=== PATIENT | female | born 1970 | race Caucasian/White ===

== ENCOUNTER 2017-07-17 05:57 | Day surgery (SDC) | payer MEDICARE, BC ==
[2017-07-17 06:48] LABS: ADD MAN DIFF? NO
[2017-07-17 06:51] LABS: BASOPHILS % 0.2 % (0.0-2.0); EOSINOPHILS # 0.1 10^3/ul (0.0-0.5); EOSINOPHILS % 1.4 % (0.0-7.0); HEMATOCRIT 40.9 % (37.0-47.0); HEMOGLOBIN 13.3 g/dl (12.0-16.0); LYMPHOCYTES % 23.1 % (15.0-51.0); MEAN CORPUSCULAR HEMOGLOBIN 31.4 pg (29.0-33.0); MEAN CORPUSCULAR HGB CONC 32.5 g/dl (32.0-37.0); MEAN CORPUSCULAR VOLUME 96.7 fl (82.0-101.0); MEAN PLATELET VOLUME 10.3 fl (7.4-10.4); MONOCYTE # 0.4 10^3/ul (0.3-0.9); MONOCYTES % 9.5 % (0.0-11.0); NEUTROPHIL # 2.9 10^3/ul (1.6-7.5); NEUTROPHILS % 65.6 % (39.0-77.0); PLATELET COUNT 153 10^3/UL (140-415); RED BLOOD COUNT 4.23 10^6/ul (4.20-5.40); RED CELL DISTRIBUTION WIDTH 13.5 % (11.5-14.5)
[2017-07-17 06:51] LABS: WHITE BLOOD COUNT 4.4 10^3/ul (4.8-10.8)
[2017-07-17 07:07] LABS: INR 0.82; PROTIME 11.3 Sec (11.9-14.9); PT RATIO 0.9
[2017-07-17 07:09] LABS: ANION GAP 15 (8-16); BLOOD UREA NITROGEN 39 mg/dl (7-20); CALCIUM 9.5 mg/dl (8.4-10.2); CARBON DIOXIDE 25 mmol/L (21-31); CHLORIDE 98 mmol/L (97-110); CREATININE 5.58 mg/dl (0.44-1.00); GLUCOSE 232 mg/dl (70-220); POTASSIUM 5.4 mmol/L (3.5-5.1)
[2017-07-17 07:15] LABS: SODIUM 133 mmol/L (135-144)
[2017-07-18] MEDS ORDERED: morphine 10 MG INJ (16:28)
[2017-07-18] MEDS ORDERED: MIDAZOLAM 1 MG/ML 2 ML INJ (16:28)
[2017-07-18] MEDS ORDERED: hydrALAzine 20 MG INJ (16:28)
[2017-07-18] MEDS ORDERED: CEFAZOLIN 2 GM/50 ML (PMX) 50 ML IVPB (16:28)
[2017-07-18] MEDS ORDERED: HEPARIN 1000 UNITS/ML 10 ML INJ (16:28)
[2017-07-18] MEDS ORDERED: FENTAnyl 50 MCG/ML VIAL (16:28)
[2017-07-18] MEDS ORDERED: IODIXANOL LOCM 100 ML BTL (16:28)
[2017-07-18] MEDS ORDERED: ONDANSETRON 4 MG INJ (16:28)
[2017-07-18] MEDS ORDERED: LIDOCAINE 1% (MDV) 20 ML INJ (16:28)
[2017-07-18] MEDS ORDERED: IODIXANOL LOCM 50 ML BTL (16:28)
== END 2017-07-17 10:24 | disposition home or self-care (01) ==
LOC: SDS 05:57
DX: T82.898A Other specified complication of vascular prosthetic devices, implants and grafts, initial encounter (principal); Y84.1 Kidney dialysis as the cause of abnormal reaction of the patient, or of later complication, without mention of misadventure at the time of the procedure; I12.0 Hypertensive chronic kidney disease with stage 5 chronic kidney disease or end stage renal disease; N18.6 End stage renal disease; E11.319 Type 2 diabetes mellitus with unspecified diabetic retinopathy without macular edema; E11.21 Type 2 diabetes mellitus with diabetic nephropathy
CPT/HCPCS: 36902; 36909; 71045; 75825; 80048; 82962; 84703; 85025; 85610; 85730; 93005

== ENCOUNTER 2017-10-06 08:32 | Emergency (ER) | payer MEDICARE, BC ==
[2017-10-06] MEDS ORDERED: HYDROCODONE/APAP (10/325) TAB PO (09:30)
[2017-10-06] MEDS: ONDANSETRON (ODT) 4 MG TAB ODT (09:30)
[2017-10-06] MEDS: KETOROLAC 30 MG INJ IM (09:31)
[2017-10-06 09:50] LABS: ADD MAN DIFF? NO
[2017-10-06 09:56] LABS: WHITE BLOOD COUNT 4.6 10^3/ul (4.8-10.8)
[2017-10-06 09:56] LABS: BASOPHILS % 0.2 % (0.0-2.0); EOSINOPHILS # 0.1 10^3/ul (0.0-0.5); EOSINOPHILS % 1.5 % (0.0-7.0); HEMATOCRIT 28.3 % (37.0-47.0); HEMOGLOBIN 9.1 g/dl (12.0-16.0); LYMPHOCYTES # 0.8 10^3/ul (0.8-2.9); LYMPHOCYTES % 16.7 % (15.0-51.0); MEAN CORPUSCULAR HEMOGLOBIN 32.2 pg (29.0-33.0); MEAN CORPUSCULAR HGB CONC 32.2 g/dl (32.0-37.0); MEAN PLATELET VOLUME 9.1 fl (7.4-10.4); MONOCYTE # 0.5 10^3/ul (0.3-0.9); MONOCYTES % 10.3 % (0.0-11.0); NEUTROPHIL # 3.2 10^3/ul (1.6-7.5); NEUTROPHILS % 70.9 % (39.0-77.0); PLATELET COUNT 135 10^3/UL (140-415); RED BLOOD COUNT 2.83 10^6/ul (4.20-5.40); RED CELL DISTRIBUTION WIDTH 15.5 % (11.5-14.5)
[2017-10-06 09:57] LABS: ADD UMIC YES; UR ASCORBIC ACID NEGATIVE (NEGATIVE); UR BACTERIA FEW /HPF (NONE SEEN); UR BILIRUBIN (Dip) NEGATIVE (NEGATIVE); UR BLOOD (Dip) NEGATIVE (NEGATIVE); UR CLARITY SLIGHTLY CLOUDY (CLEAR); UR COLOR YELLOW (YELLOW); UR GLUCOSE (Dip) 3+ mg/dL (NEGATIVE); UR KETONES (Dip) NEGATIVE (NEGATIVE); UR LEUKOCYTE ESTERASE (Dip) 1+ Leu/ul (NEGATIVE); UR NITRITE (Dip) NEGATIVE (NEGATIVE); UR RBC 4 /HPF (0-5); UR SPECIFIC GRAVITY (Dip) 1.012 (1.003-1.030); UR SQUAMOUS EPITHELIAL CELL FEW /HPF (FEW); UR TOTAL PROTEIN (Dip) 3+ mg/dl (NEGATIVE); UR UROBILINOGEN (Dip) NEGATIVE (NEGATIVE); UR WBC 4 /HPF (0-5)
[2017-10-06 10:17] LABS: ANION GAP 21 (8-16)
[2017-10-06 10:18] LABS: BLOOD UREA NITROGEN 65 mg/dl (7-20); CALCIUM 8.9 mg/dl (8.4-10.2); CARBON DIOXIDE 21 mmol/L (21-31); CHLORIDE 99 mmol/L (97-110); GLUCOSE 309 mg/dl (70-220); POTASSIUM 4.9 mmol/L (3.5-5.1); SODIUM 136 mmol/L (135-144)
[2017-10-06] MEDS: CEFTRIAXONE 1 GM INJ IM (10:26)
[2017-10-06 10:32] LABS: TROPONIN-I < 0.012 ng/ml (0.00-0.12)
== END 2017-10-06 10:57 | disposition home or self-care (01) ==
LOC: E/R 10:57
DX: N39.0 Urinary tract infection, site not specified (principal); F11.29 Opioid dependence with unspecified opioid-induced disorder; G89.4 Chronic pain syndrome; I12.0 Hypertensive chronic kidney disease with stage 5 chronic kidney disease or end stage renal disease; N18.6 End stage renal disease; E11.22 Type 2 diabetes mellitus with diabetic chronic kidney disease; Z91.14 Patient's other noncompliance with medication regimen; Z99.2 Dependence on renal dialysis; Z79.4 Long term (current) use of insulin; Z79.84 Long term (current) use of oral hypoglycemic drugs
CPT/HCPCS: 36415; 71045; 80048; 81001; 84484; 85025; 93005; 96372; 99285-25

== ENCOUNTER 2017-11-07 08:52 | Inpatient (IN) | payer MEDICARE, BC ==
[2017-11-07] MEDS: ONDANSETRON 4 MG INJ IV ×4 (09:04→19:52)
[2017-11-07] MEDS: morphine 4 MG/ML VIAL IV ×2 (09:04→10:19)
[2017-11-07 09:44] LABS: ADD MAN DIFF? NO
[2017-11-07 09:48] LABS: WHITE BLOOD COUNT 5.9 10^3/ul (4.8-10.8)
[2017-11-07 09:48] LABS: BASOPHILS % 0.3 % (0.0-2.0); EOSINOPHILS # 0.1 10^3/ul (0.0-0.5); HEMATOCRIT 40.4 % (37.0-47.0); HEMOGLOBIN 12.5 g/dl (12.0-16.0); LYMPHOCYTES # 0.9 10^3/ul (0.8-2.9); LYMPHOCYTES % 14.5 % (15.0-51.0); MEAN CORPUSCULAR HEMOGLOBIN 30.8 pg (29.0-33.0); MEAN CORPUSCULAR HGB CONC 30.9 g/dl (32.0-37.0); MEAN CORPUSCULAR VOLUME 99.5 fl (82.0-101.0); MEAN PLATELET VOLUME 10.5 fl (7.4-10.4); MONOCYTE # 0.4 10^3/ul (0.3-0.9); MONOCYTES % 7.2 % (0.0-11.0); NEUTROPHIL # 4.6 10^3/ul (1.6-7.5); NEUTROPHILS % 76.8 % (39.0-77.0); PLATELET COUNT 143 10^3/UL (140-415); RED BLOOD COUNT 4.06 10^6/ul (4.20-5.40); RED CELL DISTRIBUTION WIDTH 12.2 % (11.5-14.5)
[2017-11-07 10:05] LABS: ANION GAP 18 (8-16); BLOOD UREA NITROGEN 52 mg/dl (7-20); CALCIUM 10.1 mg/dl (8.4-10.2); CARBON DIOXIDE 29 mmol/L (21-31); CHLORIDE 97 mmol/L (97-110); CREATININE 7.28 mg/dl (0.44-1.00); GLUCOSE 243 mg/dl (70-220); SODIUM 138 mmol/L (135-144)
[2017-11-07 10:07] LABS: POTASSIUM 6.3 mmol/L (3.5-5.1)
[2017-11-07 10:16] LABS: PARTIAL THROMBOPLASTIN TIME 27.4 Sec (25.0-35.0)
[2017-11-07 10:18] LABS: TROPONIN-I < 0.012 ng/ml (0.000-0.120)
[2017-11-07] MEDS: NA BICARBONATE 8.4% 50 ML SYG IV (10:19)
[2017-11-07] MEDS: CA CHLORIDE 10% 10 ML SYRINGE IV (10:19)
[2017-11-07] MEDS: NA POLYST SULFON 15 GM/60 ML BTL PO (10:19)
[2017-11-07 10:31] LABS: INR 0.96; PROTIME 12.9 Sec (11.9-14.9)
[2017-11-07] MEDS ORDERED: GLUCOSE GEL 15 GRAM TUBE BUCCAL (12:30)
[2017-11-07] MEDS ORDERED: GLUCAGON 1 MG INJ IM (12:30)
[2017-11-07] MEDS ORDERED: ALBUMIN HUMAN 25% 50 ML IV (12:30)
[2017-11-07] MEDS ORDERED: SODIUM CHLORIDE 0.9% 1L BAG IV (12:30)
[2017-11-07] MEDS ORDERED: DEXTROSE 50% 50 ML SYRINGE IV ×2 (12:30)
[2017-11-07] MEDS ORDERED: GLUCOSE GEL 15 GRAM TUBE PO ×2 (12:30)
[2017-11-07 12:34] LABS: LACTIC ACID 0.9 mmol/L (0.5-2.0)
[2017-11-07 12:44] LABS: ANION GAP 17 (8-16); BLOOD UREA NITROGEN 54 mg/dl (7-20); CALCIUM 10.2 mg/dl (8.4-10.2); CARBON DIOXIDE 31 mmol/L (21-31); CHLORIDE 96 mmol/L (97-110); CREATININE 7.35 mg/dl (0.44-1.00); GLUCOSE 287 mg/dl (70-220); SODIUM 137 mmol/L (135-144)
[2017-11-07 12:47] LABS: POTASSIUM 6.8 mmol/L (3.5-5.1)
[2017-11-07 14:13] LABS: LACTIC ACID 0.9 mmol/L (0.5-2.0)
[2017-11-07 14:47] LABS: HEPATITIS B SURFACE ANTIGEN NEGATIVE (NEGATIVE)
[2017-11-07] MEDS ORDERED: DOCUSATE SODIUM 100 MG CAP PO (15:00)
[2017-11-07] MEDS ORDERED: NACL 0.9% 3 ML SYG IV (15:00)
[2017-11-07] MEDS ORDERED: VANCOMYCIN IV PER PHARMACY XX (16:30)
[2017-11-07] MEDS: PANTOPRAZOLE (EC) 40 MG TAB PO (16:40)
[2017-11-07] MEDS: morphine 2 MG INJ IV ×3 (16:41→23:35)
[2017-11-07] MEDS: HEPARIN 1000 UNITS/ML 10 ML INJ CATHETER (17:04)
[2017-11-07] MEDS: INSULIN ASPART [NOVOLOG] 3 ML PEN SC (17:49)
[2017-11-07] MEDS: VANCOMYCIN 1.25 GM in SOD CHLORIDE 0.9% 250 ML IVPB (18:05)
[2017-11-07] MEDS: FUROSEMIDE 40 MG TAB PO (18:15)
[2017-11-07] MEDS: METOPROLOL 25 MG TAB PO (20:12)
[2017-11-07] MEDS: ATORVASTATIN 40 MG TAB PO (20:12)
[2017-11-07] MEDS: hydrALAzine 20 MG INJ IV (20:12)
[2017-11-07 20:34] LABS: ANION GAP 14 (8-16); BLOOD UREA NITROGEN 20 mg/dl (7-20); CALCIUM 9.2 mg/dl (8.4-10.2); CARBON DIOXIDE 31 mmol/L (21-31); CHLORIDE 98 mmol/L (97-110); CREATININE 3.77 mg/dl (0.44-1.00); GLUCOSE 146 mg/dl (70-220); POTASSIUM 4.3 mmol/L (3.5-5.1); SODIUM 139 mmol/L (135-144)
[2017-11-08] MEDS: ACCU-CHEK XX (02:00)
[2017-11-08] MEDS: FUROSEMIDE 40 MG TAB PO ×2 (05:07→17:18)
[2017-11-08] MEDS: PANTOPRAZOLE (EC) 40 MG TAB PO (05:07)
[2017-11-08] MEDS: morphine 2 MG INJ IV ×4 (05:57→20:20)
[2017-11-08 06:11] LABS: ADD MAN DIFF? NO
[2017-11-08 06:21] LABS: WHITE BLOOD COUNT 3.9 10^3/ul (4.8-10.8)
[2017-11-08 06:21] LABS: BASOPHILS % 0.5 % (0.0-2.0); EOSINOPHILS # 0.1 10^3/ul (0.0-0.5); EOSINOPHILS % 1.5 % (0.0-7.0); HEMATOCRIT 33.9 % (37.0-47.0); HEMOGLOBIN 10.8 g/dl (12.0-16.0); LYMPHOCYTES # 1.1 10^3/ul (0.8-2.9); LYMPHOCYTES % 28.9 % (15.0-51.0); MEAN CORPUSCULAR HEMOGLOBIN 31.8 pg (29.0-33.0); MEAN CORPUSCULAR HGB CONC 31.9 g/dl (32.0-37.0); MEAN CORPUSCULAR VOLUME 99.7 fl (82.0-101.0); MEAN PLATELET VOLUME 10.2 fl (7.4-10.4); MONOCYTE # 0.5 10^3/ul (0.3-0.9); MONOCYTES % 12.5 % (0.0-11.0); NEUTROPHIL # 2.2 10^3/ul (1.6-7.5); NEUTROPHILS % 56.3 % (39.0-77.0); PLATELET COUNT 116 10^3/UL (140-415); RED CELL DISTRIBUTION WIDTH 12.4 % (11.5-14.5)
[2017-11-08 08:00] LABS: HEMOGLOBIN A1C 6.1 % (0-5.9)
[2017-11-08] MEDS: METOPROLOL 25 MG TAB PO ×2 (08:27→20:18)
[2017-11-08] MEDS: NIFEdipine (XL) 60 MG TAB PO (08:27)
[2017-11-08] MEDS: LOSARTAN 50 MG TAB PO (08:27)
[2017-11-08] MEDS: ASPIRIN 81 MG TAB PO (08:28)
[2017-11-08] MEDS: INSULIN ASPART [NOVOLOG] 3 ML PEN SC ×5 (10:21→20:34)
[2017-11-08] MEDS ORDERED: METOCLOPRAMIDE 5 MG TAB PO (12:30)
[2017-11-08] MEDS ORDERED: ALPRAZOLAM 0.25 MG TAB PO (12:30)
[2017-11-08] MEDS: DORZOLAMIDE/TIMOLOL/PF 0.2 ML DROPERETTE BOTH EYES ×2 (13:48→20:18)
[2017-11-08] MEDS: ATORVASTATIN 40 MG TAB PO (20:18)
[2017-11-08] MEDS: INSULIN GLARGINE [LANtus] 3 ML PEN SC (20:31)
[2017-11-09] MEDS: ACCU-CHEK XX (02:00)
[2017-11-09] MEDS: morphine 2 MG INJ IV ×5 (04:34→22:22)
[2017-11-09] MEDS: FUROSEMIDE 40 MG TAB PO ×2 (05:10→17:26)
[2017-11-09] MEDS: PANTOPRAZOLE (EC) 40 MG TAB PO (05:10)
[2017-11-09 06:17] LABS: VANCOMYCIN,RANDOM 15.5 ug/ml
[2017-11-09] MEDS: INSULIN ASPART [NOVOLOG] 3 ML PEN SC ×6 (08:00→22:08)
[2017-11-09] MEDS: METOPROLOL 25 MG TAB PO ×2 (08:22→21:59)
[2017-11-09] MEDS: NIFEdipine (XL) 60 MG TAB PO (08:22)
[2017-11-09] MEDS: LOSARTAN 50 MG TAB PO (08:22)
[2017-11-09] MEDS: ASPIRIN 81 MG TAB PO (08:22)
[2017-11-09] MEDS: DORZOLAMIDE/TIMOLOL/PF 0.2 ML DROPERETTE BOTH EYES ×2 (09:00→21:59)
[2017-11-09] MEDS ORDERED: THROMBIN 5000 UNIT VIAL (11:43)
[2017-11-09] MEDS ORDERED: GELATIN SIZE 100 SPONGE (11:43)
[2017-11-09] MEDS ORDERED: HEPARIN 1000 UNITS/ML 10 ML INJ (11:44)
[2017-11-09 11:47] LABS: ANION GAP 12 (8-16); CALCIUM 9.2 mg/dl (8.4-10.2); CARBON DIOXIDE 30 mmol/L (21-31); CHLORIDE 100 mmol/L (97-110); GLUCOSE 148 mg/dl (70-220); SODIUM 136 mmol/L (135-144)
[2017-11-09] MEDS ORDERED: MIDAZOLAM 1 MG/ML 2 ML INJ (11:47)
[2017-11-09] MEDS ORDERED: ROPIVACAINE 0.5 % 30 ML VIAL (11:47)
[2017-11-09] MEDS ORDERED: FENTAnyl 50 MCG/ML VIAL (11:47)
[2017-11-09 11:58] LABS: POTASSIUM 5.6 mmol/L (3.5-5.1)
[2017-11-09 11:59] LABS: BLOOD UREA NITROGEN 38 mg/dl (7-20); CREATININE 6.37 mg/dl (0.44-1.00)
[2017-11-09] MEDS ORDERED: hydrALAzine 20 MG INJ (12:29)
[2017-11-09] MEDS: Insulin NOVOLOG SS MILD Algorithm (NPO/TPN/ENTERAL FEEDS) SC (12:30)
[2017-11-09] MEDS ORDERED: ONDANSETRON 4 MG INJ (12:31)
[2017-11-09] MEDS ORDERED: METOCLOPRAMIDE 10 MG INJ (12:31)
[2017-11-09] MEDS ORDERED: CEFAZOLIN 1 GM INJ (12:31)
[2017-11-09] MEDS ORDERED: DEXAMETHASONE 4 MG/ML 1 ML INJ (12:31)
[2017-11-09] MEDS: LIDOCAINE 1% (MPF) 30 ML INJ (12:40)
[2017-11-09] MEDS: BUPIVACAINE 0.5% (SDV) 30 ML INJ (12:40)
[2017-11-09] MEDS ORDERED: LABETALOL HCL 20MG INJ IV (13:00)
[2017-11-09] MEDS ORDERED: hydrALAzine 20 MG INJ IV (13:00)
[2017-11-09] MEDS ORDERED: METOCLOPRAMIDE 10 MG INJ IV (13:00)
[2017-11-09] MEDS ORDERED: EPHEDrine SULFATE 50 MG/5 ML SYG IV (13:00)
[2017-11-09] MEDS ORDERED: ONDANSETRON 4 MG INJ IV (13:00)
[2017-11-09] MEDS ORDERED: FENTAnyl 50 MCG/ML VIAL IV ×2 (13:00)
[2017-11-09] MEDS: hydrALAzine 20 MG INJ IV (17:27)
[2017-11-09] MEDS: VANCOMYCIN 1 GM 250 ML IVPB (17:28)
[2017-11-09] MEDS: INSULIN GLARGINE [LANtus] 3 ML PEN SC (20:00)
[2017-11-09] MEDS: ATORVASTATIN 40 MG TAB PO (21:59)
[2017-11-10] MEDS: ACCU-CHEK XX (02:00)
[2017-11-10] MEDS: morphine 2 MG INJ IV ×3 (04:34→11:52)
[2017-11-10] MEDS: hydrALAzine 20 MG INJ IV (04:34)
[2017-11-10] MEDS: PANTOPRAZOLE (EC) 40 MG TAB PO (06:16)
[2017-11-10] MEDS: FUROSEMIDE 40 MG TAB PO ×2 (06:17→17:28)
[2017-11-10] MEDS: NIFEdipine (XL) 60 MG TAB PO (08:15)
[2017-11-10] MEDS: ASPIRIN 81 MG TAB PO (08:15)
[2017-11-10] MEDS: METOPROLOL 25 MG TAB PO ×2 (08:16→21:00)
[2017-11-10] MEDS: DORZOLAMIDE/TIMOLOL/PF 0.2 ML DROPERETTE BOTH EYES ×2 (08:17→21:21)
[2017-11-10] MEDS: LOSARTAN 50 MG TAB PO (08:17)
[2017-11-10] MEDS: INSULIN ASPART [NOVOLOG] 3 ML PEN SC ×7 (08:24→21:00)
[2017-11-10] MEDS ORDERED: INSULIN ASPART [NOVOLOG] 3 ML PEN SC (12:00)
[2017-11-10 12:46] LABS: ANION GAP 13 (8-16); BLOOD UREA NITROGEN 48 mg/dl (7-20); CARBON DIOXIDE 28 mmol/L (21-31); CHLORIDE 100 mmol/L (97-110); GLUCOSE 87 mg/dl (70-220); POTASSIUM 5.1 mmol/L (3.5-5.1); SODIUM 136 mmol/L (135-144)
[2017-11-10] MEDS: morphine LIQ (10 MG/5 ML) CUP PO ×2 (16:34→21:22)
[2017-11-10] MEDS: INSULIN GLARGINE [LANtus] 3 ML PEN SC (20:00)
[2017-11-10] MEDS: ATORVASTATIN 40 MG TAB PO (21:21)
[2017-11-10 22:08] LABS: HEPATITIS B SURFACE ANTIBODY POSITIVE (NEGATIVE)
[2017-11-10] MEDS: HEPARIN 1000 UNITS/ML 10 ML INJ CATHETER (23:43)
[2017-11-11] MEDS: ACCU-CHEK XX (02:00)
[2017-11-11] MEDS: PANTOPRAZOLE (EC) 40 MG TAB PO (06:01)
[2017-11-11] MEDS: FUROSEMIDE 40 MG TAB PO (06:01)
[2017-11-11] MEDS: morphine LIQ (10 MG/5 ML) CUP PO ×2 (06:01→10:39)
[2017-11-11] MEDS: INSULIN ASPART [NOVOLOG] 3 ML PEN SC ×2 (07:30→08:10)
[2017-11-11] MEDS: LOSARTAN 50 MG TAB PO (08:07)
[2017-11-11] MEDS: DORZOLAMIDE/TIMOLOL/PF 0.2 ML DROPERETTE BOTH EYES (08:08)
[2017-11-11] MEDS: NIFEdipine (XL) 60 MG TAB PO (08:08)
[2017-11-11] MEDS: METOPROLOL 25 MG TAB PO (08:08)
[2017-11-11] MEDS: ASPIRIN 81 MG TAB PO (08:08)
== END 2017-11-11 11:36 | disposition home or self-care (01) | DRG 252 ==
LOC: E/R 08:52 → MS4 11:11
PROC: 05LF0ZZ Occlusion of Left Cephalic Vein, Open Approach (ICD-10-PCS; principal; 2017-11-09 11:53)
PROC: 5A1D70Z Performance of Urinary Filtration, Intermittent, Less than 6 Hours Per Day (ICD-10-PCS; 2017-11-09 11:53)
DX: T82.898A Other specified complication of vascular prosthetic devices, implants and grafts, initial encounter (principal); N18.6 End stage renal disease; I13.2 Hypertensive heart and chronic kidney disease with heart failure and with stage 5 chronic kidney disease, or end stage renal disease; I42.9 Cardiomyopathy, unspecified; I82.891 Chronic embolism and thrombosis of other specified veins; I87.8 Other specified disorders of veins; I25.10 Atherosclerotic heart disease of native coronary artery without angina pectoris; I73.9 Peripheral vascular disease, unspecified; I50.9 Heart failure, unspecified; D63.1 Anemia in chronic kidney disease; E11.21 Type 2 diabetes mellitus with diabetic nephropathy; E11.40 Type 2 diabetes mellitus with diabetic neuropathy, unspecified; E11.22 Type 2 diabetes mellitus with diabetic chronic kidney disease; E83.39 Other disorders of phosphorus metabolism; E87.5 Hyperkalemia; G89.29 Other chronic pain; M19.071 Primary osteoarthritis, right ankle and foot; R60.0 Localized edema; Y83.2 Surgical operation with anastomosis, bypass or graft as the cause of abnormal reaction of the patient, or of later complication, without mention of misadventure at the time of the procedure; Z99.2 Dependence on renal dialysis; Z87.891 Personal history of nicotine dependence; Z91.19 Patient's noncompliance with other medical treatment and regimen; Z79.82 Long term (current) use of aspirin; Z79.4 Long term (current) use of insulin
CPT/HCPCS: 36415; 71045; 80048; 80202; 82962; 83036; 83605; 84484; 84703; 85025; 85610; 85730; 86706; 87040; 87340; 90935; 93005; 93931; 93971; 96374; 96375; 96376; 99285-25

== ENCOUNTER 2018-01-23 05:50 | Inpatient (IN) | payer MEDICARE, BC ==
[2018-01-23] MEDS: ONDANSETRON 4 MG INJ IV ×2 (06:39→10:57)
[2018-01-23] MEDS: morphine 4 MG/ML VIAL IV ×2 (06:39→10:57)
[2018-01-23 06:41] LABS: ADD MAN DIFF? NO
[2018-01-23 06:47] LABS: BASOPHILS % 0.5 % (0.0-2.0); EOSINOPHILS # 0.1 10^3/ul (0.0-0.5); EOSINOPHILS % 1.4 % (0.0-7.0); HEMATOCRIT 28.4 % (37.0-47.0); HEMOGLOBIN 9.4 g/dl (12.0-16.0); LYMPHOCYTES # 0.9 10^3/ul (0.8-2.9); LYMPHOCYTES % 21.3 % (15.0-51.0); MEAN CORPUSCULAR HEMOGLOBIN 31.2 pg (29.0-33.0); MEAN CORPUSCULAR HGB CONC 33.1 g/dl (32.0-37.0); MEAN CORPUSCULAR VOLUME 94.4 fl (82.0-101.0); MEAN PLATELET VOLUME 10.4 fl (7.4-10.4); MONOCYTE # 0.4 10^3/ul (0.3-0.9); MONOCYTES % 8.4 % (0.0-11.0); NEUTROPHIL # 2.9 10^3/ul (1.6-7.5); NEUTROPHILS % 68.2 % (39.0-77.0); PLATELET COUNT 136 10^3/UL (140-415); RED BLOOD COUNT 3.01 10^6/ul (4.20-5.40); RED CELL DISTRIBUTION WIDTH 12.8 % (11.5-14.5)
[2018-01-23 06:47] LABS: WHITE BLOOD COUNT 4.3 10^3/ul (4.8-10.8)
[2018-01-23 06:54] LABS: ALANINE AMINOTRANSFERASE 14 IU/L (13-69); ALBUMIN 4.1 g/dl (3.3-4.9); ALBUMIN/GLOBULIN RATIO 1.24; ALKALINE PHOSPHATASE 116 IU/L (42-121); ANION GAP 19 (8-16); ASPARTATE AMINO TRANSFERASE 27 IU/L (15-46); BILIRUBIN,INDIRECT 0.2 mg/dl (0-1.1); BILIRUBIN,TOTAL 0.2 mg/dl (0.2-1.3); BLOOD UREA NITROGEN 34 mg/dl (7-20); CALCIUM 9.7 mg/dl (8.4-10.2); CARBON DIOXIDE 27 mmol/L (21-31); CHLORIDE 98 mmol/L (97-110); CREATININE 5.36 mg/dl (0.44-1.00); GLUCOSE 200 mg/dl (70-220); POTASSIUM 4.6 mmol/L (3.5-5.1); SODIUM 139 mmol/L (135-144); TOTAL PROTEIN 7.4 g/dl (6.1-8.1)
[2018-01-23 07:07] LABS: TROPONIN-I < 0.012 ng/ml (0.000-0.120)
[2018-01-23] MEDS: IODIXANOL LOCM 100 ML BTL (08:17)
[2018-01-23] MEDS: SOD CHLORIDE 0.9% 100 ML (08:17)
[2018-01-23 10:53] LABS: ADD UMIC YES; UR ASCORBIC ACID NEGATIVE (NEGATIVE); UR BILIRUBIN (Dip) NEGATIVE (NEGATIVE); UR BLOOD (Dip) NEGATIVE (NEGATIVE); UR CLARITY CLEAR (CLEAR); UR COLOR STRAW (YELLOW); UR GLUCOSE (Dip) 3+ mg/dL (NEGATIVE); UR KETONES (Dip) NEGATIVE (NEGATIVE); UR LEUKOCYTE ESTERASE (Dip) TRACE Leu/ul (NEGATIVE); UR NITRITE (Dip) NEGATIVE (NEGATIVE); UR RBC 3 /HPF (0-5); UR SPECIFIC GRAVITY (Dip) 1.009 (1.003-1.030); UR SQUAMOUS EPITHELIAL CELL FEW /HPF (FEW); UR TOTAL PROTEIN (Dip) 3+ mg/dl (NEGATIVE); UR UROBILINOGEN (Dip) NEGATIVE (NEGATIVE); UR WBC 6 /HPF (0-5)
[2018-01-23] MEDS ORDERED: ONDANSETRON 4 MG INJ IV (11:00)
[2018-01-23] MEDS ORDERED: LORAZEPAM 0.5 MG TAB PO (13:30)
[2018-01-23] MEDS ORDERED: ZOLPIDEM 5 MG TAB PO (13:30)
[2018-01-23] MEDS ORDERED: ACETAMINOPHEN 325 MG TAB PO (13:30)
[2018-01-23] MEDS: DOCUSATE SODIUM 100 MG CAP PO (13:30)
[2018-01-23] MEDS ORDERED: GLUCOSE GEL 15 GRAM TUBE BUCCAL (14:00)
[2018-01-23] MEDS ORDERED: DEXTROSE 50% 50 ML SYRINGE IV ×2 (14:00)
[2018-01-23] MEDS ORDERED: GLUCOSE GEL 15 GRAM TUBE PO ×2 (14:00)
[2018-01-23] MEDS ORDERED: GLUCAGON 1 MG INJ IM (14:00)
[2018-01-23 14:05] LABS: CREATINE KINASE 136 IU/L (23-200)
[2018-01-23 14:18] LABS: CK-MB 1.41 ng/ml (0.0-2.4); TROPONIN-I < 0.012 ng/ml (0.000-0.120)
[2018-01-23] MEDS: SEVELAMER CARBONATE 0.8 GM PKT PO (17:42)
[2018-01-23] MEDS: INSULIN ASPART [NOVOLOG] 3 ML PEN SC ×3 (17:47→20:43)
[2018-01-23 18:51] LABS: HEPATITIS B SURFACE ANTIGEN NEGATIVE (NEGATIVE)
[2018-01-23 19:10] LABS: HEPATITIS B SURFACE ANTIBODY POSITIVE (NEGATIVE)
[2018-01-23 19:31] LABS: CREATINE KINASE 134 IU/L (23-200)
[2018-01-23 19:44] LABS: CK INDEX 0.9; CK-MB 1.21 ng/ml (0.0-2.4); TROPONIN-I < 0.012 ng/ml (0.000-0.120)
[2018-01-23] MEDS: ATORVASTATIN 40 MG TAB PO (20:34)
[2018-01-23] MEDS: FAMOTIDINE 20 MG TAB PO (20:34)
[2018-01-23] MEDS: METOPROLOL 25 MG TAB PO (20:35)
[2018-01-23] MEDS: FUROSEMIDE 40 MG TAB PO (20:35)
[2018-01-23] MEDS: HEPARIN 5,000 UNIT/0.5 ML VIAL SC (20:42)
[2018-01-23] MEDS: INSULIN GLARGINE [LANTus] (100 UNITS/ML) SYG SC (20:42)
[2018-01-23] MEDS: morphine 2 MG INJ IV (20:48)
[2018-01-24] MEDS: HEPARIN 1000 UNITS/ML 10 ML INJ CATHETER (01:23)
[2018-01-24] MEDS: DOCUSATE SODIUM 100 MG CAP PO ×2 (01:30→15:31)
[2018-01-24] MEDS: morphine 2 MG INJ IV ×3 (01:39→18:20)
[2018-01-24] MEDS: ACCU-CHEK XX (01:41)
[2018-01-24 06:14] LABS: ADD MAN DIFF? NO
[2018-01-24 06:34] LABS: BASOPHILS % 0.4 % (0.0-2.0); EOSINOPHILS # 0.1 10^3/ul (0.0-0.5); EOSINOPHILS % 1.7 % (0.0-7.0); HEMATOCRIT 25.7 % (37.0-47.0); HEMOGLOBIN 8.3 g/dl (12.0-16.0); LYMPHOCYTES % 22.3 % (15.0-51.0); MEAN CORPUSCULAR HEMOGLOBIN 30.2 pg (29.0-33.0); MEAN CORPUSCULAR HGB CONC 32.3 g/dl (32.0-37.0); MEAN CORPUSCULAR VOLUME 93.5 fl (82.0-101.0); MEAN PLATELET VOLUME 9.9 fl (7.4-10.4); MONOCYTE # 0.4 10^3/ul (0.3-0.9); MONOCYTES % 8.7 % (0.0-11.0); NEUTROPHIL # 3.1 10^3/ul (1.6-7.5); NEUTROPHILS % 66.7 % (39.0-77.0); PLATELET COUNT 129 10^3/UL (140-415); RED BLOOD COUNT 2.75 10^6/ul (4.20-5.40)
[2018-01-24 06:34] LABS: WHITE BLOOD COUNT 4.6 10^3/ul (4.8-10.8)
[2018-01-24 06:45] LABS: IRON 59 ug/dl (35-150)
[2018-01-24 06:55] LABS: % IRON SATURATION 28 % SAT (22-52); TOTAL IRON BINDING CAPACITY 213 ug/dl (241-421)
[2018-01-24 06:57] LABS: ANION GAP 13 (8-16); BLOOD UREA NITROGEN 14 mg/dl (7-20); CARBON DIOXIDE 31 mmol/L (21-31); CHLORIDE 101 mmol/L (97-110); CREATININE 2.96 mg/dl (0.44-1.00); GLUCOSE 114 mg/dl (70-220); POTASSIUM 4.1 mmol/L (3.5-5.1); SODIUM 141 mmol/L (135-144)
[2018-01-24 07:01] LABS: FREE THYROXINE INDEX (Calc) 2.99 ug/ml (0.65-3.89); T3 UPTAKE 33.2 % (23.5-40.5)
[2018-01-24] MEDS: SEVELAMER CARBONATE 0.8 GM PKT PO ×3 (07:43→17:49)
[2018-01-24] MEDS: INSULIN ASPART [NOVOLOG] 3 ML PEN SC ×7 (07:45→21:29)
[2018-01-24] MEDS: METOPROLOL 25 MG TAB PO ×2 (08:28→21:22)
[2018-01-24] MEDS: LINAGLIPTIN 5 MG TABLET PO (08:28)
[2018-01-24] MEDS: ASPIRIN 81 MG TAB PO (08:28)
[2018-01-24] MEDS: FUROSEMIDE 40 MG TAB PO ×2 (08:29→21:20)
[2018-01-24] MEDS: LOSARTAN 50 MG TAB PO (08:29)
[2018-01-24] MEDS: NIFEdipine (XL) 60 MG TAB PO (08:29)
[2018-01-24] MEDS: HEPARIN 5,000 UNIT/0.5 ML VIAL SC ×2 (08:34→21:29)
[2018-01-24] MEDS ORDERED: NON-FORMULARY/PATIENT OWN MED (Linagliptin (Tradjenta) 5 MG) PO (09:00)
[2018-01-24] MEDS: SOD CHLORIDE 0.9% 100 ML (11:24)
[2018-01-24] MEDS: IODIXANOL LOCM 100 ML BTL (11:24)
[2018-01-24] MEDS: PANTOPRAZOLE (EC) 40 MG TAB PO (17:49)
[2018-01-24] MEDS ORDERED: morphine 2 MG INJ IV (19:00)
[2018-01-24] MEDS: ATORVASTATIN 40 MG TAB PO (21:12)
[2018-01-24] MEDS: INSULIN GLARGINE [LANTus] (100 UNITS/ML) SYG SC (21:28)
[2018-01-25] MEDS: DOCUSATE SODIUM 100 MG CAP PO ×3 (01:30→23:53)
[2018-01-25] MEDS: ACCU-CHEK XX ×2 (02:00→23:54)
[2018-01-25] MEDS: PANTOPRAZOLE (EC) 40 MG TAB PO ×2 (05:30→17:46)
[2018-01-25] MEDS: morphine 2 MG INJ IV ×4 (05:30→23:01)
[2018-01-25] MEDS: INSULIN ASPART [NOVOLOG] 3 ML PEN SC ×7 (07:48→21:00)
[2018-01-25] MEDS: ASPIRIN 81 MG TAB PO (08:34)
[2018-01-25] MEDS: SEVELAMER CARBONATE 0.8 GM PKT PO ×3 (08:34→17:46)
[2018-01-25] MEDS: FUROSEMIDE 40 MG TAB PO ×2 (08:35→23:02)
[2018-01-25] MEDS: METOPROLOL 25 MG TAB PO ×2 (08:39→23:01)
[2018-01-25] MEDS: HEPARIN 5,000 UNIT/0.5 ML VIAL SC ×2 (08:43→23:04)
[2018-01-25] MEDS: LINAGLIPTIN 5 MG TABLET PO (08:51)
[2018-01-25] MEDS: LOSARTAN 50 MG TAB PO ×3 (08:51→11:32)
[2018-01-25] MEDS: NIFEdipine (XL) 60 MG TAB PO ×2 (08:51→11:31)
[2018-01-25] MEDS: AMLODIPINE 5 MG TAB PO (11:30)
[2018-01-25] MEDS: ONDANSETRON 4 MG INJ IV (18:18)
[2018-01-25] MEDS: INSULIN GLARGINE [LANTus] (100 UNITS/ML) SYG SC ×2 (20:00→23:05)
[2018-01-25] MEDS: HEPARIN 1000 UNITS/ML 10 ML INJ CATHETER (22:32)
[2018-01-25] MEDS: ATORVASTATIN 40 MG TAB PO (22:58)
[2018-01-26] MEDS: PANTOPRAZOLE (EC) 40 MG TAB PO (06:44)
[2018-01-26] MEDS: morphine 2 MG INJ IV ×2 (06:44→11:10)
[2018-01-26] MEDS: DOCUSATE SODIUM 100 MG CAP PO (07:48)
[2018-01-26] MEDS: LOSARTAN 50 MG TAB PO (07:48)
[2018-01-26] MEDS: ASPIRIN 81 MG TAB PO (07:48)
[2018-01-26] MEDS: NIFEdipine (XL) 60 MG TAB PO (07:49)
[2018-01-26] MEDS: SEVELAMER CARBONATE 0.8 GM PKT PO ×2 (07:49→11:46)
[2018-01-26] MEDS: METOPROLOL 25 MG TAB PO (07:49)
[2018-01-26] MEDS: LINAGLIPTIN 5 MG TABLET PO (07:50)
[2018-01-26] MEDS: FUROSEMIDE 40 MG TAB PO (07:50)
[2018-01-26] MEDS: HEPARIN 5,000 UNIT/0.5 ML VIAL SC (07:56)
[2018-01-26] MEDS: INSULIN ASPART [NOVOLOG] 3 ML PEN SC ×4 (07:56→11:48)
== END 2018-01-26 12:25 | disposition home or self-care (01) | DRG 312 ==
LOC: E/R 05:50 → 6WM 10:53
PROC: 5A1D70Z Performance of Urinary Filtration, Intermittent, Less than 6 Hours Per Day (ICD-10-PCS; principal; 2018-01-23)
DX: I95.1 Orthostatic hypotension (principal); N18.6 End stage renal disease; I13.2 Hypertensive heart and chronic kidney disease with heart failure and with stage 5 chronic kidney disease, or end stage renal disease; D61.818 Other pancytopenia; I67.4 Hypertensive encephalopathy; E11.22 Type 2 diabetes mellitus with diabetic chronic kidney disease; E11.40 Type 2 diabetes mellitus with diabetic neuropathy, unspecified; E11.21 Type 2 diabetes mellitus with diabetic nephropathy; D63.1 Anemia in chronic kidney disease; E88.09 Other disorders of plasma-protein metabolism, not elsewhere classified; I16.0 Hypertensive urgency; I50.9 Heart failure, unspecified; I25.10 Atherosclerotic heart disease of native coronary artery without angina pectoris; G89.29 Other chronic pain; M47.9 Spondylosis, unspecified; N63.21 Unspecified lump in the left breast, upper outer quadrant; Z99.2 Dependence on renal dialysis; Z87.891 Personal history of nicotine dependence; Z91.14 Patient's other noncompliance with medication regimen; Z79.82 Long term (current) use of aspirin; Z79.4 Long term (current) use of insulin
CPT/HCPCS: 36415; 70450; 71045; 71275; 72125; 72128; 72131; 74177; 76642; 80048; 80053; 81001; 82550; 82553; 82962; 83540; 83735; 84436; 84443; 84479; 84484; 85025; 86706; 87040; 87086; 87340; 90935; 93005; 93306; 93880; 96374; 96375; 97161; 99285-25

== ENCOUNTER 2018-02-13 14:56 | Emergency (ER) | payer MEDICARE, BC ==
[2018-02-13 17:04] LABS: ADD MAN DIFF? NO
[2018-02-13] MEDS: NITROGLYCERIN (SL) 0.4 MG TAB SL ×2 (17:06→17:34)
[2018-02-13 17:07] LABS: BASOPHILS % 0.2 % (0.0-2.0); EOSINOPHILS # 0.1 10^3/ul (0.0-0.5); EOSINOPHILS % 1.6 % (0.0-7.0); HEMATOCRIT 29.6 % (37.0-47.0); HEMOGLOBIN 9.8 g/dl (12.0-16.0); LYMPHOCYTES % 23.5 % (15.0-51.0); MEAN CORPUSCULAR HEMOGLOBIN 31.4 pg (29.0-33.0); MEAN CORPUSCULAR HGB CONC 33.1 g/dl (32.0-37.0); MEAN CORPUSCULAR VOLUME 94.9 fl (82.0-101.0); MEAN PLATELET VOLUME 9.8 fl (7.4-10.4); MONOCYTE # 0.3 10^3/ul (0.3-0.9); MONOCYTES % 7.5 % (0.0-11.0); NEUTROPHIL # 2.8 10^3/ul (1.6-7.5); PLATELET COUNT 140 10^3/UL (140-415); RED BLOOD COUNT 3.12 10^6/ul (4.20-5.40); RED CELL DISTRIBUTION WIDTH 12.4 % (11.5-14.5)
[2018-02-13 17:07] LABS: WHITE BLOOD COUNT 4.3 10^3/ul (4.8-10.8)
[2018-02-13 17:23] LABS: ANION GAP 23 (8-16); BLOOD UREA NITROGEN 73 mg/dl (7-20); CALCIUM 9.7 mg/dl (8.4-10.2); CARBON DIOXIDE 26 mmol/L (21-31); CHLORIDE 90 mmol/L (97-110); CREATININE 8.49 mg/dl (0.44-1.00); POTASSIUM 4.9 mmol/L (3.5-5.1); SODIUM 134 mmol/L (135-144)
[2018-02-13 17:26] LABS: GLUCOSE 448 mg/dl (70-220)
[2018-02-13 17:34] LABS: TROPONIN-I < 0.012 ng/ml (0.000-0.120)
[2018-02-13] MEDS: morphine 4 MG/ML VIAL IV (18:00)
[2018-02-13] MEDS: SOD CHLORIDE 0.9% 1,000 ML IV (18:00)
[2018-02-13] MEDS: INSULIN ASPART [NOVOLOG] 3 ML PEN SC (19:01)
[2018-02-13] MEDS: hydrALAzine 20 MG INJ IV (19:38)
[2018-02-13 19:44] LABS: URINE BLOOD (Dip) POC Trace-intact (NEGATIVE); URINE KETONES (Dip) POC Negative (NEGATIVE); URINE LEUKOCYTE EST (Dip) POC Trace (NEGATIVE); URINE NITRITE (Dip) POC Negative (NEGATIVE); URINE TOTAL PROTEIN POC 3+ (NEGATIVE)
[2018-02-13 19:44] LABS: URINE PH (Dip) POC 7.5 (5.0-8.5)
[2018-02-13] MEDS: HYDROCODONE/APAP (5/325) TAB PO ×2 (19:55→20:00)
[2018-02-13] MEDS: ONDANSETRON 4 MG INJ IV (19:55)
[2018-02-13 20:14] LABS: ADD UMIC YES; UR ASCORBIC ACID NEGATIVE (NEGATIVE); UR BACTERIA FEW /HPF (NONE SEEN); UR BILIRUBIN (Dip) NEGATIVE (NEGATIVE); UR BLOOD (Dip) NEGATIVE (NEGATIVE); UR CLARITY SLIGHTLY CLOUDY (CLEAR); UR COLOR YELLOW (YELLOW); UR GLUCOSE (Dip) 3+ mg/dL (NEGATIVE); UR KETONES (Dip) NEGATIVE (NEGATIVE); UR LEUKOCYTE ESTERASE (Dip) 1+ Leu/ul (NEGATIVE); UR NITRITE (Dip) NEGATIVE (NEGATIVE); UR RBC 5 /HPF (0-5); UR SPECIFIC GRAVITY (Dip) 1.012 (1.003-1.030); UR SQUAMOUS EPITHELIAL CELL FEW /HPF (FEW); UR TOTAL PROTEIN (Dip) 3+ mg/dl (NEGATIVE); UR UROBILINOGEN (Dip) NEGATIVE (NEGATIVE); UR WBC 33 /HPF (0-5)
[2018-02-13] MEDS: CEPHALEXIN 500 MG CAP PO (20:41)
== END 2018-02-13 21:25 | disposition home or self-care (01) ==
LOC: E/R 14:56
DX: M54.6 Pain in thoracic spine (principal); G89.29 Other chronic pain; R31.9 Hematuria, unspecified; N18.6 End stage renal disease; I12.0 Hypertensive chronic kidney disease with stage 5 chronic kidney disease or end stage renal disease; E11.22 Type 2 diabetes mellitus with diabetic chronic kidney disease; Z79.4 Long term (current) use of insulin; Z79.82 Long term (current) use of aspirin; Z99.2 Dependence on renal dialysis
CPT/HCPCS: 36415; 71045; 80048; 81001; 81003; 81025; 82962; 84484; 85025; 87086; 93005; 96361; 96372; 96374; 96375; 99285-25

== ENCOUNTER 2018-02-21 10:31 | Emergency (ER) | payer SELFPAY, BC, MEDICARE | END 2018-02-21 15:42 | disposition left against medical advice (07) | LOC: E/R 15:42 | DX: Z53.21 Procedure and treatment not carried out due to patient leaving prior to being seen by health care provider (principal) ==

== ENCOUNTER 2018-02-25 09:40 | Emergency (ER) | payer MEDICARE, BC ==
[2018-02-25] MEDS: KETOROLAC 30 MG INJ IM (11:08)
[2018-02-25 11:58] LABS: ADD UMIC YES; UR ASCORBIC ACID NEGATIVE (NEGATIVE); UR BILIRUBIN (Dip) NEGATIVE (NEGATIVE); UR BLOOD (Dip) NEGATIVE (NEGATIVE); UR CLARITY CLEAR (CLEAR); UR COLOR YELLOW (YELLOW); UR GLUCOSE (Dip) 3+ mg/dL (NEGATIVE); UR KETONES (Dip) NEGATIVE (NEGATIVE); UR LEUKOCYTE ESTERASE (Dip) NEGATIVE Leu/ul (NEGATIVE); UR NITRITE (Dip) NEGATIVE (NEGATIVE); UR RBC 1 /HPF (0-5); UR SPECIFIC GRAVITY (Dip) 1.013 (1.003-1.030); UR SQUAMOUS EPITHELIAL CELL FEW /HPF (FEW); UR TOTAL PROTEIN (Dip) 3+ mg/dl (NEGATIVE); UR UROBILINOGEN (Dip) NEGATIVE (NEGATIVE); UR WBC 5 /HPF (0-5)
== END 2018-02-25 12:19 | disposition home or self-care (01) ==
LOC: E/R 09:40
DX: R10.31 Right lower quadrant pain (principal); I12.0 Hypertensive chronic kidney disease with stage 5 chronic kidney disease or end stage renal disease; N18.6 End stage renal disease; E11.22 Type 2 diabetes mellitus with diabetic chronic kidney disease; Z79.4 Long term (current) use of insulin; Z79.82 Long term (current) use of aspirin; Z99.2 Dependence on renal dialysis
CPT/HCPCS: 81001; 87086; 96372; 99284-25

== ENCOUNTER 2018-04-19 16:23 | Inpatient (IN) | payer MEDICARE, BC ==
[2018-04-19 17:34] LABS: ADD MAN DIFF? NO
[2018-04-19] MEDS: ONDANSETRON 4 MG INJ IV (17:39)
[2018-04-19 17:40] LABS: BASOPHILS % 0.2 % (0.0-2.0); EOSINOPHILS # 0.1 10^3/ul (0.0-0.5); EOSINOPHILS % 1.2 % (0.0-7.0); HEMATOCRIT 36.5 % (37.0-47.0); HEMOGLOBIN 11.6 g/dl (12.0-16.0); LYMPHOCYTES # 0.7 10^3/ul (0.8-2.9); LYMPHOCYTES % 16.4 % (15.0-51.0); MEAN CORPUSCULAR HEMOGLOBIN 30.5 pg (29.0-33.0); MEAN CORPUSCULAR HGB CONC 31.8 g/dl (32.0-37.0); MEAN CORPUSCULAR VOLUME 96.1 fl (82.0-101.0); MONOCYTE # 0.3 10^3/ul (0.3-0.9); MONOCYTES % 8.2 % (0.0-11.0); PLATELET COUNT 136 10^3/UL (140-415); RED CELL DISTRIBUTION WIDTH 12.3 % (11.5-14.5)
[2018-04-19 18:03] LABS: ALANINE AMINOTRANSFERASE 79 IU/L (13-69); ALBUMIN 4.1 g/dl (3.3-4.9); ALKALINE PHOSPHATASE 156 IU/L (42-121); ANION GAP 15 (5-13); ASPARTATE AMINO TRANSFERASE 68 IU/L (15-46); BILIRUBIN,INDIRECT 0.3 mg/dl (0-1.1); BILIRUBIN,TOTAL 0.3 mg/dl (0.2-1.3); BLOOD UREA NITROGEN 60 mg/dl (7-20); CALCIUM 8.8 mg/dl (8.4-10.2); CARBON DIOXIDE 29 mmol/L (21-31); CHLORIDE 91 mmol/L (97-110); CREATININE 6.66 mg/dl (0.44-1.00); Estimated GFR 7 mL/min (>60); GLUCOSE 381 mg/dl (70-220); LIPASE 108 U/L (23-300); SODIUM 135 mmol/L (135-144); TOTAL PROTEIN 7.5 g/dl (6.1-8.1)
[2018-04-19 18:07] LABS: POTASSIUM 5.4 mmol/L (3.5-5.1)
[2018-04-19 18:15] LABS: TROPONIN-I < 0.012 ng/ml (0.000-0.120)
[2018-04-19 18:20] LABS: ADD UMIC YES; UR ASCORBIC ACID NEGATIVE (NEGATIVE); UR BACTERIA FEW /HPF (NONE SEEN); UR BILIRUBIN (Dip) NEGATIVE (NEGATIVE); UR BLOOD (Dip) NEGATIVE (NEGATIVE); UR CLARITY SLIGHTLY CLOUDY (CLEAR); UR COLOR YELLOW (YELLOW); UR GLUCOSE (Dip) 3+ mg/dL (NEGATIVE); UR KETONES (Dip) NEGATIVE (NEGATIVE); UR LEUKOCYTE ESTERASE (Dip) 1+ Leu/ul (NEGATIVE); UR MUCUS FEW /HPF (NONE SEEN); UR NITRITE (Dip) NEGATIVE (NEGATIVE); UR RBC 4 /HPF (0-5); UR SPECIFIC GRAVITY (Dip) 1.013 (1.003-1.030); UR SQUAMOUS EPITHELIAL CELL MANY /HPF (FEW); UR TOTAL PROTEIN (Dip) 3+ mg/dl (NEGATIVE); UR UROBILINOGEN (Dip) NEGATIVE (NEGATIVE); UR WBC 25 /HPF (0-5)
[2018-04-19] MEDS: morphine 2 MG INJ IV ×2 (18:59→23:51)
[2018-04-19] MEDS: LEVOFLOXACIN 750MG/D5W (PMX) 150 ML IVPB (18:59)
[2018-04-19] MEDS: hydrALAzine 20 MG INJ IV (21:06)
[2018-04-19] MEDS ORDERED: DEXTROSE 50% 50 ML SYRINGE IV ×2 (23:45)
[2018-04-19] MEDS ORDERED: GLUCOSE GEL 15 GRAM TUBE BUCCAL (23:45)
[2018-04-19] MEDS ORDERED: GLUCAGON 1 MG INJ IM (23:45)
[2018-04-19] MEDS ORDERED: GLUCOSE GEL 15 GRAM TUBE PO ×2 (23:45)
[2018-04-20] MEDS: NA POLYST SULFON 15 GM/60 ML BTL PO (00:49)
[2018-04-20] MEDS: hydrALAzine 20 MG INJ IV (00:52)
[2018-04-20] MEDS: FUROSEMIDE 40 MG TAB PO ×2 (06:06→18:12)
[2018-04-20] MEDS: ONDANSETRON 4 MG INJ IV (06:41)
[2018-04-20] MEDS: morphine 2 MG INJ IV ×2 (06:48→12:16)
[2018-04-20 07:02] LABS: ADD MAN DIFF? NO
[2018-04-20 07:10] LABS: WHITE BLOOD COUNT 4.2 10^3/ul (4.8-10.8)
[2018-04-20 07:10] LABS: BASOPHILS % 0.2 % (0.0-2.0); EOSINOPHILS # 0.1 10^3/ul (0.0-0.5); EOSINOPHILS % 1.4 % (0.0-7.0); HEMATOCRIT 34.5 % (37.0-47.0); LYMPHOCYTES # 0.8 10^3/ul (0.8-2.9); LYMPHOCYTES % 18.6 % (15.0-51.0); MEAN CORPUSCULAR HEMOGLOBIN 30.7 pg (29.0-33.0); MEAN CORPUSCULAR HGB CONC 31.9 g/dl (32.0-37.0); MEAN CORPUSCULAR VOLUME 96.4 fl (82.0-101.0); MEAN PLATELET VOLUME 10.3 fl (7.4-10.4); MONOCYTE # 0.4 10^3/ul (0.3-0.9); MONOCYTES % 8.9 % (0.0-11.0); NEUTROPHIL # 2.9 10^3/ul (1.6-7.5); NEUTROPHILS % 70.4 % (39.0-77.0); PLATELET COUNT 124 10^3/UL (140-415); RED BLOOD COUNT 3.58 10^6/ul (4.20-5.40); RED CELL DISTRIBUTION WIDTH 12.4 % (11.5-14.5)
[2018-04-20] MEDS: ACCU-CHEK XX ×4 (07:25→21:55)
[2018-04-20 07:41] LABS: ALANINE AMINOTRANSFERASE 71 IU/L (13-69); ALBUMIN 3.9 g/dl (3.3-4.9); ALBUMIN/GLOBULIN RATIO 1.21; ALKALINE PHOSPHATASE 149 IU/L (42-121); ANION GAP 17 (5-13); ASPARTATE AMINO TRANSFERASE 64 IU/L (15-46); BILIRUBIN,INDIRECT 0.3 mg/dl (0-1.1); BILIRUBIN,TOTAL 0.3 mg/dl (0.2-1.3); BLOOD UREA NITROGEN 66 mg/dl (7-20); CALCIUM 8.9 mg/dl (8.4-10.2); CARBON DIOXIDE 27 mmol/L (21-31); CHLORIDE 94 mmol/L (97-110); Estimated GFR 6 mL/min (>60); GLUCOSE 215 mg/dl (70-220); POTASSIUM 5.8 mmol/L (3.5-5.1); SODIUM 138 mmol/L (135-144); TOTAL PROTEIN 7.1 g/dl (6.1-8.1)
[2018-04-20] MEDS: ASPIRIN 81 MG TAB PO (08:17)
[2018-04-20] MEDS: SEVELAMER CARBONATE 0.8 GM PKT PO ×3 (08:17→18:11)
[2018-04-20] MEDS: NORTRIPTYLINE 25 MG CAP PO ×2 (08:18→20:28)
[2018-04-20] MEDS: LOSARTAN 50 MG TAB PO (08:18)
[2018-04-20] MEDS: LINAGLIPTIN 5 MG TABLET PO (08:18)
[2018-04-20] MEDS: NIFEdipine (XL) 60 MG TAB PO (08:19)
[2018-04-20] MEDS: INSULIN ASPART [NOVOLOG] 3 ML PEN SC ×7 (08:37→20:29)
[2018-04-20] MEDS: SENNA/DOCUSATE NA (8.6MG/50MG) TAB PO (14:20)
[2018-04-20 19:32] LABS: HEPATITIS B SURFACE ANTIGEN NEGATIVE (NEGATIVE)
[2018-04-20] MEDS: LEVOFLOXACIN 250MG/D5W (PMX) 50 ML IVPB (20:00)
[2018-04-20] MEDS: ATORVASTATIN 40 MG TAB PO (20:28)
[2018-04-20] MEDS: HEPARIN 5,000 UNIT/1 ML VIAL SC (20:28)
[2018-04-20] MEDS: INSULIN GLARGINE [LANtus] 3 ML PEN SC (20:29)
[2018-04-21] MEDS: HEPARIN 1000 UNITS/ML 10 ML INJ CATHETER (00:19)
[2018-04-21] MEDS: morphine 2 MG INJ IV ×3 (00:28→18:48)
[2018-04-21] MEDS: FUROSEMIDE 40 MG TAB PO ×2 (05:55→16:52)
[2018-04-21] MEDS: ACCU-CHEK XX ×4 (07:44→20:50)
[2018-04-21] MEDS ORDERED: HEPARIN 5,000 UNIT/0.5 ML VIAL ×2 (07:58→20:05)
[2018-04-21] MEDS: INSULIN ASPART [NOVOLOG] 3 ML PEN SC ×7 (08:00→20:49)
[2018-04-21] MEDS: SENNA/DOCUSATE NA (8.6MG/50MG) TAB PO (08:21)
[2018-04-21] MEDS: LINAGLIPTIN 5 MG TABLET PO (08:21)
[2018-04-21] MEDS: NORTRIPTYLINE 25 MG CAP PO ×2 (08:21→20:25)
[2018-04-21] MEDS: SEVELAMER CARBONATE 0.8 GM PKT PO ×3 (08:21→16:52)
[2018-04-21] MEDS: LOSARTAN 50 MG TAB PO (08:22)
[2018-04-21] MEDS: ASPIRIN 81 MG TAB PO (08:22)
[2018-04-21] MEDS: NIFEdipine (XL) 60 MG TAB PO (08:22)
[2018-04-21] MEDS: HEPARIN 5,000 UNIT/1 ML VIAL SC ×2 (08:26→20:49)
[2018-04-21] MEDS: METOCLOPRAMIDE 5 MG TAB PO ×2 (12:27→16:52)
[2018-04-21 14:27] LABS: INR 0.91; PROTIME 12.3 Sec (11.9-14.9)
[2018-04-21 14:28] LABS: PARTIAL THROMBOPLASTIN TIME 27.1 Sec (23.0-35.0)
[2018-04-21 14:30] LABS: ALANINE AMINOTRANSFERASE 62 IU/L (13-69); ALBUMIN 3.2 g/dl (3.3-4.9); ALKALINE PHOSPHATASE 117 IU/L (42-121); ASPARTATE AMINO TRANSFERASE 49 IU/L (15-46); BILIRUBIN,INDIRECT 0.1 mg/dl (0-1.1); BILIRUBIN,TOTAL 0.1 mg/dl (0.2-1.3); TOTAL PROTEIN 5.7 g/dl (6.1-8.1)
[2018-04-21] MEDS: NIFEdipine (XL) 30 MG TAB PO (15:15)
[2018-04-21] MEDS: MEGESTROL 40 MG TAB PO (15:15)
[2018-04-21] MEDS: GENTAMICIN 120 MG in SOD CHLORIDE 0.9% 100 ML IVPB (15:44)
[2018-04-21] MEDS: ATORVASTATIN 40 MG TAB PO (20:25)
[2018-04-21] MEDS: INSULIN GLARGINE [LANtus] 3 ML PEN SC (20:49)
[2018-04-21] MEDS ORDERED: INSULIN GLARGINE [LANtus] 3 ML PEN SC (21:00)
[2018-04-22] MEDS: morphine 2 MG INJ IV (05:33)
[2018-04-22] MEDS: FUROSEMIDE 40 MG TAB PO (05:36)
[2018-04-22 06:35] LABS: ADD MAN DIFF? NO
[2018-04-22 06:43] LABS: BASOPHILS % 0.3 % (0.0-2.0); EOSINOPHILS # 0.1 10^3/ul (0.0-0.5); EOSINOPHILS % 2.5 % (0.0-7.0); HEMATOCRIT 30.3 % (37.0-47.0); HEMOGLOBIN 9.7 g/dl (12.0-16.0); LYMPHOCYTES # 0.8 10^3/ul (0.8-2.9); LYMPHOCYTES % 22.9 % (15.0-51.0); MEAN CORPUSCULAR HEMOGLOBIN 30.7 pg (29.0-33.0); MEAN CORPUSCULAR VOLUME 95.9 fl (82.0-101.0); MONOCYTE # 0.4 10^3/ul (0.3-0.9); MONOCYTES % 10.8 % (0.0-11.0); NEUTROPHIL # 2.2 10^3/ul (1.6-7.5); NEUTROPHILS % 63.2 % (39.0-77.0); PLATELET COUNT 110 10^3/UL (140-415); RED BLOOD COUNT 3.16 10^6/ul (4.20-5.40); RED CELL DISTRIBUTION WIDTH 12.3 % (11.5-14.5)
[2018-04-22 06:43] LABS: WHITE BLOOD COUNT 3.5 10^3/ul (4.8-10.8)
[2018-04-22 07:05] LABS: ANION GAP 11 (5-13); BLOOD UREA NITROGEN 45 mg/dl (7-20); CALCIUM 8.5 mg/dl (8.4-10.2); CARBON DIOXIDE 27 mmol/L (21-31); CHLORIDE 95 mmol/L (97-110); CREATININE 5.41 mg/dl (0.44-1.00); Estimated GFR 8 mL/min (>60); GLUCOSE 165 mg/dl (70-220); POTASSIUM 5.4 mmol/L (3.5-5.1); SODIUM 133 mmol/L (135-144)
[2018-04-22] MEDS: ACCU-CHEK XX ×2 (07:43→11:36)
[2018-04-22] MEDS: INSULIN ASPART [NOVOLOG] 3 ML PEN SC ×2 (07:48→11:49)
[2018-04-22] MEDS: LINAGLIPTIN 5 MG TABLET PO (07:56)
[2018-04-22] MEDS: METOCLOPRAMIDE 5 MG TAB PO (07:56)
[2018-04-22] MEDS: SEVELAMER CARBONATE 0.8 GM PKT PO ×2 (07:56→12:36)
[2018-04-22] MEDS: MEGESTROL 40 MG TAB PO (07:57)
[2018-04-22] MEDS: SENNA/DOCUSATE NA (8.6MG/50MG) TAB PO (07:57)
[2018-04-22] MEDS: NORTRIPTYLINE 25 MG CAP PO (07:57)
[2018-04-22] MEDS: HEPARIN 5,000 UNIT/1 ML VIAL SC (09:00)
[2018-04-22] MEDS: HEPARIN 1000 UNITS/ML 10 ML INJ CATHETER (12:32)
[2018-04-22] MEDS: LOSARTAN 50 MG TAB PO (13:23)
[2018-04-22] MEDS: NIFEdipine (XL) 60 MG TAB PO (13:23)
== END 2018-04-22 16:20 | disposition home or self-care (01) | DRG 690 ==
LOC: E/R 16:23 → TEL 20:29
PROC: 5A1D70Z Performance of Urinary Filtration, Intermittent, Less than 6 Hours Per Day (ICD-10-PCS; principal; 2018-04-20)
DX: N10 Acute pyelonephritis (principal); D61.818 Other pancytopenia; I13.2 Hypertensive heart and chronic kidney disease with heart failure and with stage 5 chronic kidney disease, or end stage renal disease; J90 Pleural effusion, not elsewhere classified; D63.1 Anemia in chronic kidney disease; E11.22 Type 2 diabetes mellitus with diabetic chronic kidney disease; E11.40 Type 2 diabetes mellitus with diabetic neuropathy, unspecified; E11.21 Type 2 diabetes mellitus with diabetic nephropathy; E87.5 Hyperkalemia; G89.29 Other chronic pain; I25.10 Atherosclerotic heart disease of native coronary artery without angina pectoris; I50.9 Heart failure, unspecified; K59.00 Constipation, unspecified; M19.90 Unspecified osteoarthritis, unspecified site; N18.6 End stage renal disease; N63.0 Unspecified lump in unspecified breast; Z53.8 Procedure and treatment not carried out for other reasons; Z99.2 Dependence on renal dialysis; Z87.11 Personal history of peptic ulcer disease; Z90.49 Acquired absence of other specified parts of digestive tract; Z87.440 Personal history of urinary (tract) infections; Z79.82 Long term (current) use of aspirin; Z79.4 Long term (current) use of insulin
CPT/HCPCS: 36415; 71045; 74176; 76604; 76705; 80048; 80053; 80076; 81001; 82962; 83690; 83735; 84484; 84703; 85025; 85610; 85730; 87340; 90935; 93005; 96374; 96375; 99285-25

== ENCOUNTER 2018-06-05 14:35 | Emergency (ER) | payer MEDICARE, BC ==
[2018-06-05 15:14] LABS: ADD MAN DIFF? NO
[2018-06-05 15:15] LABS: BASOPHILS % 0.3 % (0.0-2.0); HEMATOCRIT 33.2 % (37.0-47.0); HEMOGLOBIN 10.7 g/dl (12.0-16.0); LYMPHOCYTES # 0.9 10^3/ul (0.8-2.9); MEAN CORPUSCULAR HGB CONC 32.2 g/dl (32.0-37.0); MEAN PLATELET VOLUME 9.6 fl (7.4-10.4); MONOCYTE # 0.5 10^3/ul (0.3-0.9); MONOCYTES % 12.6 % (0.0-11.0); NEUTROPHIL # 2.5 10^3/ul (1.6-7.5); NEUTROPHILS % 63.8 % (39.0-77.0); PLATELET COUNT 143 10^3/UL (140-415); RED BLOOD COUNT 3.57 10^6/ul (4.20-5.40); RED CELL DISTRIBUTION WIDTH 12.3 % (11.5-14.5)
[2018-06-05 15:32] LABS: ANION GAP 11 (5-13); BLOOD UREA NITROGEN 40 mg/dl (7-20); CALCIUM 9.5 mg/dl (8.4-10.2); CARBON DIOXIDE 31 mmol/L (21-31); CHLORIDE 89 mmol/L (97-110); CREATININE 6.48 mg/dl (0.44-1.00); Estimated GFR 7 mL/min (>60); GLUCOSE 291 mg/dl (70-220); POTASSIUM 4.8 mmol/L (3.5-5.1); SODIUM 131 mmol/L (135-144)
[2018-06-05] MEDS: morphine 4 MG/ML VIAL IV (17:04)
[2018-06-05] MEDS: SOD CHLORIDE 0.9% 500 ML IV (17:54)
[2018-06-05 18:20] LABS: ADD UMIC YES; UR ASCORBIC ACID NEGATIVE (NEGATIVE); UR BILIRUBIN (Dip) NEGATIVE (NEGATIVE); UR BLOOD (Dip) NEGATIVE (NEGATIVE); UR CLARITY SLIGHTLY CLOUDY (CLEAR); UR COLOR YELLOW (YELLOW); UR GLUCOSE (Dip) 3+ mg/dL (NEGATIVE); UR KETONES (Dip) NEGATIVE (NEGATIVE); UR LEUKOCYTE ESTERASE (Dip) TRACE Leu/ul (NEGATIVE); UR NITRITE (Dip) NEGATIVE (NEGATIVE); UR RBC 7 /HPF (0-5); UR SPECIFIC GRAVITY (Dip) 1.012 (1.003-1.030); UR SQUAMOUS EPITHELIAL CELL FEW /HPF (FEW); UR TOTAL PROTEIN (Dip) 3+ mg/dl (NEGATIVE); UR UROBILINOGEN (Dip) NEGATIVE (NEGATIVE); UR WBC 39 /HPF (0-5)
[2018-06-05] MEDS: SENNA TAB PO (18:20)
[2018-06-05] MEDS: INSULIN ASPART [NOVOLOG] 3 ML PEN SC (19:27)
== END 2018-06-05 19:51 | disposition home or self-care (01) ==
LOC: E/R 14:35
DX: S89.92XA Unspecified injury of left lower leg, initial encounter (principal); N39.0 Urinary tract infection, site not specified; K59.00 Constipation, unspecified; N18.9 Chronic kidney disease, unspecified; I12.9 Hypertensive chronic kidney disease with stage 1 through stage 4 chronic kidney disease, or unspecified chronic kidney disease; E11.22 Type 2 diabetes mellitus with diabetic chronic kidney disease; W19.XXXA Unspecified fall, initial encounter; Y92.9 Unspecified place or not applicable; Z79.82 Long term (current) use of aspirin; Z99.2 Dependence on renal dialysis; Z79.4 Long term (current) use of insulin
CPT/HCPCS: 36415; 73502; 73510; 73550; 73552; 74176; 80048; 81001; 82962; 84703; 85025; 93971; 96372; 96374; 99285-25

== ENCOUNTER 2018-07-06 08:39 | Observation (INO) | payer MEDICARE, BC ==
[2018-07-06] MEDS ORDERED: DESMOPRESSIN 18 MCG in SOD CHLORIDE 0.9% 50 ML IVPB (09:30)
[2018-07-06 09:41] LABS: ADD MAN DIFF? NO
[2018-07-06] MEDS: morphine 4 MG/ML VIAL IV ×2 (09:42→14:02)
[2018-07-06] MEDS: ONDANSETRON 4 MG INJ IV ×2 (09:42→14:02)
[2018-07-06 10:03] LABS: ALANINE AMINOTRANSFERASE 9 IU/L (13-69); ALBUMIN 4.7 g/dl (3.3-4.9); ALKALINE PHOSPHATASE 124 IU/L (42-121); ANION GAP 14 (5-13); ASPARTATE AMINO TRANSFERASE 25 IU/L (15-46); BLOOD UREA NITROGEN 43 mg/dl (7-20); CALCIUM 10.6 mg/dl (8.4-10.2); CARBON DIOXIDE 22 mmol/L (21-31); CHLORIDE 99 mmol/L (97-110); CREATININE 6.84 mg/dl (0.44-1.00); Estimated GFR 6 mL/min (>60); GLUCOSE 258 mg/dl (70-220); SODIUM 135 mmol/L (135-144); TOTAL PROTEIN 8.6 g/dl (6.1-8.1)
[2018-07-06 10:05] LABS: WHITE BLOOD COUNT 5.2 10^3/ul (4.8-10.8)
[2018-07-06 10:05] LABS: EOSINOPHILS # 0.1 10^3/ul (0.0-0.5); EOSINOPHILS % 1.2 % (0.0-7.0); HEMATOCRIT 37.7 % (37.0-47.0); HEMOGLOBIN 12.1 g/dl (12.0-16.0); LYMPHOCYTES % 18.7 % (15.0-51.0); MEAN CORPUSCULAR HEMOGLOBIN 30.3 pg (29.0-33.0); MEAN CORPUSCULAR HGB CONC 32.1 g/dl (32.0-37.0); MEAN CORPUSCULAR VOLUME 94.5 fl (82.0-101.0); MEAN PLATELET VOLUME 9.8 fl (7.4-10.4); MONOCYTE # 0.4 10^3/ul (0.3-0.9); MONOCYTES % 8.1 % (0.0-11.0); NEUTROPHIL # 3.7 10^3/ul (1.6-7.5); NEUTROPHILS % 71.4 % (39.0-77.0); PLATELET COUNT 143 10^3/UL (140-415); RED BLOOD COUNT 3.99 10^6/ul (4.20-5.40)
[2018-07-06 10:08] LABS: INR 0.82; PROTIME 11.4 Sec (11.9-14.9); PT RATIO 0.9
[2018-07-06 10:09] LABS: PARTIAL THROMBOPLASTIN TIME 28.6 Sec (23.0-35.0)
[2018-07-06 10:15] LABS: TROPONIN-I < 0.012 ng/ml (0.000-0.120)
[2018-07-06 10:20] LABS: ADD UMIC YES; UR ASCORBIC ACID NEGATIVE (NEGATIVE); UR BACTERIA FEW /HPF (NONE SEEN); UR BILIRUBIN (Dip) NEGATIVE (NEGATIVE); UR BLOOD (Dip) NEGATIVE (NEGATIVE); UR CLARITY CLEAR (CLEAR); UR COLOR YELLOW (YELLOW); UR GLUCOSE (Dip) 3+ mg/dL (NEGATIVE); UR KETONES (Dip) NEGATIVE (NEGATIVE); UR LEUKOCYTE ESTERASE (Dip) NEGATIVE Leu/ul (NEGATIVE); UR NITRITE (Dip) NEGATIVE (NEGATIVE); UR RBC 4 /HPF (0-5); UR SPECIFIC GRAVITY (Dip) 1.011 (1.003-1.030); UR SQUAMOUS EPITHELIAL CELL FEW /HPF (FEW); UR TOTAL PROTEIN (Dip) 3+ mg/dl (NEGATIVE); UR UROBILINOGEN (Dip) NEGATIVE (NEGATIVE); UR WBC 6 /HPF (0-5)
[2018-07-06] MEDS: ASPIRIN 81 MG TAB PO (14:02)
[2018-07-06] MEDS: LEVOFLOXACIN 500MG/D5W (PMX) 100 ML IVPB (15:39)
[2018-07-06] MEDS: NIFEdipine (XL) 60 MG TAB PO (15:39)
[2018-07-06 16:01] LABS: CREATINE KINASE 37 IU/L (23-200)
[2018-07-06 16:14] LABS: CK INDEX 4.8; CK-MB 1.79 ng/ml (0.0-2.4); TROPONIN-I 0.012 ng/ml (0.000-0.120)
[2018-07-06] MEDS: hydrALAzine 20 MG INJ IV ×2 (17:29→18:31)
[2018-07-06] MEDS: LOSARTAN 50 MG TAB PO (17:54)
[2018-07-06] MEDS: INSULIN ASPART [NOVOLOG] 3 ML PEN SC (17:55)
[2018-07-06] MEDS: SEVELAMER CARBONATE 0.8 GM PKT PO (17:58)
[2018-07-06] MEDS ORDERED: LABETALOL HCL 20MG INJ IV (18:00)
[2018-07-06] MEDS: ATORVASTATIN 40 MG TAB PO (20:08)
[2018-07-06] MEDS: FUROSEMIDE 40 MG TAB PO (20:08)
[2018-07-06] MEDS: morphine 2 MG INJ IV (20:12)
[2018-07-06] MEDS ORDERED: INSULIN GLARGINE [LANtus] 3 ML PEN SC (21:00)
[2018-07-06] MEDS: INSULIN GLARGINE [LANTus] (100 UNITS/ML) SYG SC (22:36)
[2018-07-06 22:55] LABS: CREATINE KINASE 38 IU/L (23-200)
[2018-07-06 23:08] LABS: CK INDEX 5.3; CK-MB 2.03 ng/ml (0.0-2.4)
[2018-07-07] MEDS: morphine 2 MG INJ IV ×3 (02:35→14:49)
[2018-07-07 06:52] LABS: ADD MAN DIFF? NO
[2018-07-07 06:56] LABS: EOSINOPHILS # 0.1 10^3/ul (0.0-0.5); EOSINOPHILS % 1.6 % (0.0-7.0); HEMATOCRIT 34.4 % (37.0-47.0); LYMPHOCYTES % 26.6 % (15.0-51.0); MEAN CORPUSCULAR HEMOGLOBIN 30.2 pg (29.0-33.0); MEAN CORPUSCULAR VOLUME 94.5 fl (82.0-101.0); MEAN PLATELET VOLUME 9.5 fl (7.4-10.4); MONOCYTE # 0.3 10^3/ul (0.3-0.9); MONOCYTES % 8.6 % (0.0-11.0); NEUTROPHIL # 2.4 10^3/ul (1.6-7.5); NEUTROPHILS % 62.9 % (39.0-77.0); PLATELET COUNT 115 10^3/UL (140-415); RED BLOOD COUNT 3.64 10^6/ul (4.20-5.40); RED CELL DISTRIBUTION WIDTH 13.2 % (11.5-14.5)
[2018-07-07 06:56] LABS: WHITE BLOOD COUNT 3.8 10^3/ul (4.8-10.8)
[2018-07-07 07:23] LABS: ALBUMIN 3.6 g/dl (3.3-4.9); ANION GAP 7 (5-13); BLOOD UREA NITROGEN 47 mg/dl (7-20); CALCIUM 9.6 mg/dl (8.4-10.2); CARBON DIOXIDE 26 mmol/L (21-31); CHLORIDE 102 mmol/L (97-110); CREATININE 7.54 mg/dl (0.44-1.00); GLUCOSE 133 mg/dl (70-220); MAGNESIUM 2.5 mg/dl (1.7-2.5); PHOSPHORUS 6.6 mg/dl (2.5-4.9); POTASSIUM 5.8 mmol/L (3.5-5.1); SODIUM 135 mmol/L (135-144)
[2018-07-07] MEDS: ONDANSETRON 4 MG INJ IV (08:08)
[2018-07-07] MEDS: SEVELAMER CARBONATE 0.8 GM PKT PO ×3 (08:10→17:28)
[2018-07-07] MEDS: INSULIN ASPART [NOVOLOG] 3 ML PEN SC ×3 (08:21→17:30)
[2018-07-07] MEDS: NIFEdipine (XL) 60 MG TAB PO (09:00)
[2018-07-07] MEDS: FUROSEMIDE 40 MG TAB PO (09:00)
[2018-07-07] MEDS: LOSARTAN 50 MG TAB PO (09:00)
[2018-07-07] MEDS ORDERED: LOSARTAN 50 MG TAB PO (09:00)
[2018-07-07 10:48] LABS: HEPATITIS B SURFACE ANTIGEN NEGATIVE (NEGATIVE)
[2018-07-07] MEDS: HEPARIN 1000 UNITS/ML 10 ML INJ CATHETER (14:43)
[2018-07-07] MEDS: MEROPENEM 1 GM/50ML(PMX) 50 ML IVPB (14:52)
== END 2018-07-07 18:55 | disposition home or self-care (01) ==
LOC: E/R 08:39 → TEL 12:55
DX: R07.89 Other chest pain (principal); N39.0 Urinary tract infection, site not specified; I12.0 Hypertensive chronic kidney disease with stage 5 chronic kidney disease or end stage renal disease; E11.22 Type 2 diabetes mellitus with diabetic chronic kidney disease; N18.6 End stage renal disease; Z99.2 Dependence on renal dialysis; I25.119 Atherosclerotic heart disease of native coronary artery with unspecified angina pectoris; E78.00 Pure hypercholesterolemia, unspecified; E83.39 Other disorders of phosphorus metabolism; D64.9 Anemia, unspecified; Z79.84 Long term (current) use of oral hypoglycemic drugs; G89.29 Other chronic pain; M54.5 Low back pain; M19.90 Unspecified osteoarthritis, unspecified site
CPT/HCPCS: 36415; 70450; 71045; 76830; 76856; 80053; 80069; 81001; 82550; 82553; 82962; 83735; 84484; 85025; 85610; 85730; 87086; 87340; 90935; 93005; 96374; 96375; 97161; 99217; 99285-25; G0378